=== PATIENT | female | born 2000 | race Caucasian/White ===

== ENCOUNTER 2024-11-06 08:49 | Outpatient (CLI) | payer MEDICAID, SELFPAY ==
--- NOTE | ~2024-11-06 | US_ITS ---
Limited Abdominal Sonogram: Real-time sonographic imaging of the right upper quadrant was performed. Clinical History: Abnormal serum enzyme levels Findings: The liver appears normal with no evidence of mass lesion or bile duct dilatation. Main por kathi vein demonstrates normal direction of flow. The gallbladder is well distended, and demonstrates e chogenic, shadowing gallstone. The common bile duct measures 4 mm. The visualized pancreas, aorta, a nd IVC are unremarkable. Impression: Cholelithiasis. Reviewed, dictated and finalized at location M. [employer] Impression: Cholelithiasis.
== END 2024-11-06 08:50 | disposition home or self-care (01) ==
LOC: MICIMG 08:50
PROVIDERS: PCP Family Medicine; Visit Provider Student in an Organized Health Care Education/Training Program
DX: R74.8 Abnormal levels of other serum enzymes (principal); K80.20 Calculus of gallbladder without cholecystitis without obstruction
CPT/HCPCS: 76705